=== PATIENT | male | born 1950 | race Caucasian/White ===

== ENCOUNTER → 2018-08-04 | Outpatient (CLI) | payer MEDICARE ==
[~2018-08-04] MED LIST: ALBU6.7H INH; ASPI-515 PO; BUDE10.22 INH; DIGO125T PO; FLUT10SP NAS; GABA300C10 PO; SERT100T PO
== END | disposition home or self-care (01) ==
LOC: CVU 13:12
PROVIDERS: ATTEND Internal Medicine Cardiovascular Disease
DX: I48.0 Paroxysmal atrial fibrillation (principal); I51.7 Cardiomegaly; I65.21 Occlusion and stenosis of right carotid artery; J44.9 Chronic obstructive pulmonary disease, unspecified; F17.200 Nicotine dependence, unspecified, uncomplicated
CPT/HCPCS: 93306

== ENCOUNTER → 2020-08-26 | Outpatient (CLI) | payer MEDICARE ==
[~2020-08-26] MED LIST changes: -ALBU6.7H INH; +ALBU6.7H8 INH; -ASPI-515 PO; +ASPI-963 PO; +CEPH-367 PO; +CIPR500T87 PO; -DIGO125T PO; +DIGO125T85 PO; +FLUT1BLS3 INH; +GUAI200T37 PO; +METO25TA35 PO; +METR500T PO; +MISO100T2 PO; +PANT20TA4 PO; +RIVA20TA PO
== END | disposition home or self-care (01) ==
LOC: CFH 08:57
PROVIDERS: ATTEND Nurse Practitioner Family
DX: Z12.2 Encounter for screening for malignant neoplasm of respiratory organs (principal); J43.2 Centrilobular emphysema; F17.219 Nicotine dependence, cigarettes, with unspecified nicotine-induced disorders; J84.10 Pulmonary fibrosis, unspecified
CPT/HCPCS: 71271